=== PATIENT | female | born 1970 | race Caucasian/White ===

== ENCOUNTER → 2019-03-28 10:04 | Outpatient (POV) | payer BC, SELFPAY ==
[2019-03-28 10:23] VITALS: BP 148/93; PULSE 87; RESP 18; O2SAT 98; BMI 25.7
--- NOTE | 2019-03-30 12:46 | HMH.PMCON ---
Assessment and Plan (1) Sacroiliitis Current visit: Yes Status: Chronic Category: Medical Code(s): M46.1 - Sacroiliitis, not elsewhere classified - Assessment and plan all Dx Assessment and Plan for all problems:: Patient and I discussed SI joint belt along with prescription anti-inflammatory she would like to move forward trying this. We will call in diclofenac 75 mg 1 p.o. twice daily for the patient. We will follow-up with her in 1 month reassess her symptoms at that time I do believe she may benefit from injective therapy in the future. However we will see how she does after these anti-inflammatories. Dr. Damon has reviewed this note and agrees with this plan of care. she has been instructed to call the office if she has any issues prior to her next appointment. This note was dictated using voice recognition software and may contain errors or omissions HPI - Data of Consult Consult date: 03/28/19 Requesting Physician: Ursula Schmitt APRN Primary Care Provider: Saul Smith - Consult Narrative Reason for consult: Low back pain History of present illness: Ms. Rivera is a 48 year old female who presents today for consultation in regards to her low back pain. Patient has had pain on and off since childbirth many years ago. However at this time it is any more frequently there. She has pain in her low back that does not radiate. Patient has a positive Diamante sign Miguel sign and SI joint compression sign. Patient rates her pain a 2 out of 10 today. She has been given Lortab sporadically throughout the years to take during her flareups. However she states that ibuprofen is very beneficial as well. She has not been on any prescription anti-inflammatories. CC: Ursula Schmitt APRN [facility] History I have reviewed the patient's past medical history: Yes *Have you ever received a pneumonia vaccine?: Yes *Have you received a flu vaccine this season?: Yes Other Surgeries: Yes: Cholecystectomy, Hysterectomy-Total Amputation: No Fractures: No - *Social History Smoking Status: Never smoker Alcohol Intake: never *Occupational Status:: other Housing: house Household Members: other *Travel in the last 8 weeks: None Family Hx:: Unable to obtain Review of Systems - Review of Systems ROS General: no recent weight change, no fever, no sleep disturbances Respiratory: no cough, no shortness of air, no recurring pulmonary infections Cardiovascular/Peripheral Vascular: No chest pain, No palpitations, no edema, no shortness of breath. Gastrointestinal: no new onset incontinence, normal bowel movements reported Genitourinary: no new onset incontinence Musculoskeletal: Bilateral SI joint pain Psychiatric: normal mood/ affect Neurological: [denies new onset weakness in extremities], [denies new onset balance issues] Meds Home Medications Medication Instructions Recorded Confirmed Type Diclofenac Sodium [Diclofenac 75mg 75 mg PO BID #60 tab 03/28/19 Rx Tab] Allergies Allergy/AdvReac Type Severity Reaction Status Date / Time Amoxicillin Allergy Unknown Uncoded 03/24/17 15:07 Clavulanic Acid Allergy Unknown Uncoded 03/24/17 15:07 Penicillin Allergy Unknown Uncoded 03/24/17 15:07 Objective Vital signs: Pulse Resp BP Pulse Ox 87 18 148/93 H 98 03/28/19 10:23 03/28/19 10:23 03/28/19 10:23 03/28/19 10:23 Narrative: Physical Exam General: Alert and oriented x3, no acute distress, pleasant and cooperative, [on room air] Lungs: Resps E/U, Symmetrical chest expansion, Eyes: PERRL Musculoskeletal: Flexion and extension of lumbar spine somewhat guarded secondary to pain, deep tendon reflexes normal, strength in upper and lower extremities [5/5], normal gait noted positive Diamante sign Miguel sign and SI joint compression test bilaterally Neurological: speech clear, scrub technician equal, no gross sensory deficits Opioid Risk Tool - Opioid Risk Tool-Fe
== END ==
PROVIDERS: PCP Family Medicine; Visit Provider Clinical Nurse Specialist Family Health
DX: M46.1 Sacroiliitis, not elsewhere classified (principal)
CPT/HCPCS: 99202

== ENCOUNTER → 2020-11-15 14:37 | Outpatient (POV) | payer BC, SELFPAY ==
[2020-11-15 14:51] VITALS: BP 129/86; PULSE 86; RESP 18; TEMP 37.2; O2SAT 97; BMI 23.3
--- NOTE | 2020-11-15 15:41 | HMH.PMCON ---
Assessment and Plan (1) Degenerative joint disease (DJD) of lumbar spine Status: Chronic Category: Medical Code(s): M47.816 - Spondylosis without myelopathy or radiculopathy, lumbar region (2) Bilateral sacroiliitis Status: Chronic Category: Medical Code(s): M46.1 - Sacroiliitis, not elsewhere classified - Assessment and plan all Dx Assessment and Plan for all problems:: Patient I discussed her symptoms today. She does have a positive Silvestre's, compression, distraction test with tenderness to bilateral SI joints. I did discuss with the patient she would likely need to undergo bilateral SI joint injections. She does have an MRI that reports annular bulge at L4-L5. She is having paresthesia into her left lower extremity with bilateral low back pain, bilateral buttock pain and bilateral hip pain. Patient did request oral medications, and was previously prescribed [place] 7.5 mg every 4 hours as needed. She also takes tizanidine every 8 hours as needed muscle spasms. I have expressed to the patient our policy and will not be able to provide opiates to the patient for her pain, that would be happy to offer injective and interventional therapies. Patient has deferred with me at this time. She would Dr. Damon to examine her records and make recommendations. I have advised her that Dr. Damon can review the note performed by myself today, as well as her MRI and referral note. She has asked to be contacted tomorrow on 11/16/2020 for 2 PM at the phone #[phone] regarding a further plan of care. Patient has been instructed to contact the clinic with any concerns before the next appointment. Dr. Damon has reviewed this note and agrees with this plan of care. This note was dictated using voice recognition software and make contain errors or omissions. HPI - Data of Consult Patient: new to practice Consult date: 11/15/20 Requesting Physician: Lissa Perez APRN Primary Care Provider: Saul Smith - Consult Narrative Reason for consult: Low back pain History of present illness: Ms. Rivera is a 50 year old female presents today for consultation for chronic patient says that she has pain in her bilateral low back area with radiation into bilateral lower extremities, worse to left leg. Patient says that she began to develop severe low back pain in her early 40s. The pain has progressively worsened. She says that she began to develop leg numbness and tingling into the left leg approximately 2 to 3 months ago which is progressively worsening as well. She is now having episodes of her legs giving out . Patient says that her pain is worse with sitting and after driving. She says that she is unable to sit upright with correct posture due to pain. She does have a MRI of her lumbar spine that reports annular bulge at L4-L5, without significant spinal stenosis, narrowing, or fractures. Patient is tender to palpation to bilateral SI joints today. She also has tenderness to her bilateral hips and groin. She denies any bowel or bladder changes. She denies saddle anesthesia. Patient's pain is an 8 out of 10. Patient has been referred to us by Dr. Saul Smith. She was previously taking [place] 7.5 mg. She was getting up to 18 tablets per prescription. She says that her primary care provider prescribed more than 18 pills at a time. She is here today for possible medication management. Patient has been advised that we are not able to prescribe oral medications, however, can perform injective therapy. Patient has requested that Dr. Damon review her records before proceeding with any further treatment. She does feel that Dr. Damon may feel she is appropriate for oral medications. CC: Lissa Perez APRN [facility] History I have reviewed the patient's past medical history: Yes *Have you ever received a pneumonia vaccine?: No *Have you received a flu vaccine this season?: No Other Surgeries: Yes: Cholecystectomy, Hysterectomy-Total Amputation: No Fractures: No - *Social Hi
== END ==
PROVIDERS: PCP Family Medicine; Visit Provider Clinical Nurse Specialist Family Health
DX: M47.816 Spondylosis without myelopathy or radiculopathy, lumbar region (principal); M46.1 Sacroiliitis, not elsewhere classified
CPT/HCPCS: 99202; G0463

== ENCOUNTER → 2022-10-15 12:45 | Outpatient (POV) | payer BC, SELFPAY ==
[2022-10-15 12:55] VITALS: BP 109/76; PULSE 84; RESP 18; O2SAT 97; BMI 23.1
--- NOTE | 2022-10-15 13:38 | EXP.PAIN.OV ---
HPI Data of Consult Patient: new to practice Consult date: 10/15/22 Requesting Physician: Ema Jean Baptiste APRN Consult Narrative Reason for consult: Low back pain, left leg pain History of present illness: Ms. Rivera is a 52 year old female who presents today as a new patient. She is a referral from Dr. Robertson office. Today she rates her pain an 8 out of 10. Patient states her pain is all in her low back with radiating symptoms into her left lower extremity. Patient states this has been going on for approximately 3 years or more and progressively worsened over time. Patient denies any specific trauma or injury that initially led to her symptoms. Patient does describe it as a constant throbbing sensation with numbness and tingling into her hips that is worse with increased activity. She does state the pain makes it difficult performing activities of daily living such as cooking and cleaning. She states her pain is aggravated by prolonged sitting, standing or walking. She does state that she has recently had imaging done at [facility]. Patient is currently managed with tizanidine 4 mg 3 times daily as needed along with previous [place] 7.5 mg 4 times a day tablets. She stated previously she had even tried Tylenol 3 however it made no additional improvement. Patient states she tried [id number] medications along with Tylenol and ibuprofen and heat and ice and multiple topicals such as IcyHot and Biofreeze with no additional improvement. She states that she did previously go to Dr. Ramon's office however he was wanting to do an epidural and she was not interested in this injection. Patient denies any previous surgery or injective history patient has had physical therapy as well as chiropractor treatments with no additional change. She does state that she has a aortic insufficiency that she goes to see Liz guerrero every 2 years for and that it is stable. Her Rajiv is [phone]. Its been reviewed and appropriate. CC: Ema Jean Baptiste APRN [facility] Disclaimer: The information contained in this section may have been updated after the patient was seen, as this information can be updated by other users. Medical History (Updated 10/15/22 @ 13:45 by Ema Jean Baptiste APRN) Anxiety Chronic pain Gall bladder disease Surgical History (Updated 10/15/22 @ 13:31 by Marleen Mancuso RN) H/O breast augmentation H/O: hysterectomy History of dental surgery Hx of cholecystectomy Hx of tonsillectomy Social History (Updated 10/15/22 @ 13:34 by Marleen Mancuso RN) Smoking Status: Never smoker alcohol intake: never current occupational status: employed Travel in the last 8 weeks: None household members: other housing: house Review of Systems Review of Systems Review of systems:: pertinent systems reviewed and negative unless documented below Review of systems (narrative): Review of Systems: General: No recent weight changes, no fever, no sleep disturbances Respiratory: No cough, no shortness of air, no recurring pulmonary infections Cardiovascular/peripheral vascular: No chest pain, no palpitations, no edema, no shortness of breath Gastrointestinal: No new onset incontinence, normal bowel movements reported Genitourinary: No new onset incontinence Musculoskeletal: Low back pain, left leg pain Psychiatric: [Normal mood/affect] Neurological: [Denies weakness in extremities], [denies balance issues] Meds Home Medications and Allergies Home Medications Medication Instructions Recorded Confirmed Type clonazepam 1 mg tablet 1 mg PO TID NERVES 10/15/22 10/15/22 History hydroxyzine HCl 25 mg tablet 25 mg PO DAILYP PRN NERVES 10/15/22 10/15/22 History tizanidine 4 mg tablet 4 mg PO BID NERVES 10/15/22 10/15/22 History trazodone 100 mg tablet 200 mg PO DAILY SLEEP 10/15/22 10/15/22 History New Prescriptions to Start Prescriptions: Allergies Allergy/AdvReac Type Severity Reaction Status Date / Time
== END | disposition home or self-care (01) ==
PROVIDERS: Visit Provider Nurse Practitioner Family
DX: M46.1 Sacroiliitis, not elsewhere classified (principal); M54.42 Lumbago with sciatica, left side; M54.41 Lumbago with sciatica, right side; G89.29 Other chronic pain; M54.16 Radiculopathy, lumbar region
CPT/HCPCS: 99202; G0463

== ENCOUNTER → 2023-05-08 10:20 | Outpatient (POV) | payer BC, SELFPAY ==
[2023-05-08 10:32] VITALS: BP 123/86; PULSE 102; RESP 18; O2SAT 97; BMI 23.3
--- NOTE | 2023-05-08 11:33 | A.OFFVIS_ITS ---
[facility] Pain Management SOAP Note Subjective:: This patient is a very pleasant 52-year-old female comes to clinic today to review lumbar MRI results. Patient reports low back pain she describes as constant, dull, aching. Patient also reports left hip and leg radicular symptoms below the knee. Her lumbar MRI shows mild bulge at L4-5 with some mild compromise of the left neural foramen. Patient rates her pain 6/10. We discussed treatment options with the patient. I recommend lumbar epidural steroid injection at the L4-5 level. Patient requesting narcotic pain medication. I informed the patient we would not be writing narcotic pain medication for her for this specific condition. Offered muscle relaxants as well as prescription strength NSAIDs. Patient reports she is taking ibuprofen 800 mg 1 p.o. twice daily. Patient states the NSAIDs do not help with pain. Objective:: Patient is awake alert [place] x 3. No acute distress. Flexion-extension lumbar spine normal. Deep tendon reflexes upper lower extremities normal. Motor strength upper lower extremities normal. There is no gross sensory deficit. Gait is normal. Assessment:: Degenerative disc lumbar spine multilevels. Disc bulge L4-5. Left leg radiculopathy. Plan:: Discussed in detail with the patient regarding lumbar epidural steroid injection at the L4-5 level. Answered her questions. She wishes to proceed. [facility] Disclaimer: The information contained in this section may have been updated after the pat ient was seen, as this information can be updated by other users. Medical History (Updated 10/15/22 @ 13:45 by Ema Jean Baptiste APRN) Anxiety Chronic pain Gall bladder disease Surgical History (Updated 10/15/22 @ 13:31 by Marleen Mancuso RN) H/O breast augmentation H/O: hysterectomy History of dental surgery Hx of cholecystectomy Hx of tonsillectomy Social History (Updated 10/15/22 @ 13:34 by Marleen Mancuso RN) Smoking Status: Never smoker alcohol intake: never substance use type: denies use current occupational status: employed Travel in the last 8 weeks: None household members: other housing: house
== END ==
LOC: SC.PAIN 10:20
PROVIDERS: PCP Family Medicine; Visit Provider Nurse Anesthetist, Certified Registered
DX: M51.36 Other intervertebral disc degeneration, lumbar region (principal); M51.26 Other intervertebral disc displacement, lumbar region
CPT/HCPCS: 99212; G0463

== ENCOUNTER → 2023-05-19 13:37 | Outpatient (POV) | payer BC, SELFPAY ==
[2023-05-19 13:40] VITALS: BP 151/101; PULSE 87; RESP 16; TEMP 36.6; O2SAT 98; BMI 24.1
--- NOTE | 2023-05-26 10:54 | EXP.PAIN.SOA ---
[facility] Pain Management SOAP Note Subjective:: Patient is a pleasant 52-year-old female comes our clinic today following insurance denial regarding lumbar epidural steroid injection. Patient describes low back pain as constant, dull, aching. She also reports right hip and leg radicular symptoms. Patient has been to physical therapy within the last year. Physical therapy was discontinued due to pain increasing in the low back area. Patient has continued with home exercise program. She has failed conservative measures such as acetaminophen, prescription strength NSAIDs, gabapentin. Given the lumbar pathology my recommendation is lumbar epidural steroid injection at the L4-5 level. Patient requesting narcotic pain medication 4-5 times during her visit. She is requesting hydrocodone 5 mg 3 times a day. I informed the patient we do not write narcotics for this kind of pain. Patient seems very annoyed regarding not receiving narcotics. Patient is requesting narcotics from me in previous visits for the same pain which I have denied. Objective:: Patient is awake alert [place] x 3. No acute distress. Flexion-extension lumbar spine somewhat guarded secondary to pain. Deep tendon reflexes upper and lower extremities normal. Motor strength upper and lower extremities normal. There is no gross sensory deficit. Gait is normal. Assessment:: Degenerative disc lumbar spine multilevels. Lumbar radiculopathy. Plan:: I recommend we resubmit for insurance approval regarding lumbar epidural steroid injection at the L4-5 level. [facility] Disclaimer: The information contained in this section may have been updated after the patient was seen, as this information can be updated by other users. Medical History Anxiety Chronic pain Gall bladder disease Surgical History H/O breast augmentation H/O: hysterectomy History of dental surgery Hx of cholecystectomy Hx of tonsillectomy Social History Smoking Status: Never smoker alcohol intake: never substance use type: denies use current occupational status: disabled Travel in the last 8 weeks: None household members: other housing: house
== END ==
LOC: SC.PAIN 13:38
PROVIDERS: PCP Family Medicine; Visit Provider Nurse Anesthetist, Certified Registered
DX: M51.16 Intervertebral disc disorders with radiculopathy, lumbar region (principal)
CPT/HCPCS: 99212; G0463

== ENCOUNTER 2023-07-06 15:06 | Outpatient (POV) | payer BC, SELFPAY ==
[2023-07-06 15:14] VITALS: BP 143/97; PULSE 96; RESP 18; O2SAT 98; BMI 24.1
--- NOTE | 2023-07-06 15:32 | EXP.PAIN.SOA ---
[facility] Pain Management SOAP Note Subjective:: Patient is a pleasant 52-year-old female who presents today for her second insurance denial regarding lumbar epidural. Patient rates her pain today an 8 out of 10. Patient states that she has not had any additional injury or trauma from our last visit. She does state that she continues to have chronic pain in her low back that radiates down her entire left extremity. Patient does describe this as an aching, constant sensation with numbness and tingling into her extremity. Patient has tried and failed conservative therapy such as oral medication of Tylenol and ibuprofen along with gabapentin and [place] in the past. Patient has also tried heat and ice and topicals with minimal relief. Patient was in physical therapy however was discontinued due to worsening pain. Patient does state that the only thing that seemed to really help her overall pain was the Lortab. Patient states that she was prescribed stronger medication in the past of Percocet and that she could not tolerate it due to weight gain. Patient does have a history of aortic valve leakage and is monitored regularly by her lard maker. Patient states this is stable and denies any blood thinners. Patient is interested in any help we may be able to provide as the pain is interfering with her ability to perform activities of daily living such as cooking and cleaning. Patient has been prescribed tizanidine 4 mg twice daily, meloxicam 7.5 mg daily and Flector patches in the past. Her Rajiv has been reviewed and is appropriate. Review of Systems: General: No recent weight changes, no fever, no sleep disturbances Respiratory: No cough, no shortness of air, no recurring pulmonary infections Cardiovascular/peripheral vascular: No chest pain, no palpitations, no edema, no shortness of breath Gastrointestinal: No new onset incontinence, normal bowel movements reported Genitourinary: No new onset incontinence Musculoskeletal: Low back pain, left leg pain Psychiatric: [Normal mood/affect] Neurological: [Denies weakness in extremities], [denies balance issues] Objective:: Physical Exam: General: Alert and oriented x3, no acute distress, pleasant and cooperative Lungs: Respirations even and unlabored, symmetrical chest expansion Eyes: PERRL Musculoskeletal: Flexion and extension of lumbar [spine] somewhat guarded secondary to pain, [antalgic gait noted] positive left leg raise Neurological: Speech clear, no gross sensory deficit [facility] 02/16/2023 MRI lumbar spine without contrast Findings: Multiplanar MR imaging of the lumbar spine was performed without contrast. On the sagittal T2 weighted images there is abnormal decreased signal involving only the L4-L5 disc. The vertebrae are of normal height. Vertebral alignment is normal. L1-2: No significant canal stenosis or neuroforaminal narrowing. L2-3: No significant canal stenosis or narrowing. L3-4: No significant canal stenosis or neuroforaminal narrowing. L4-5: Mild annular bulge is present with mild compromise of the left neural foramen. L5-S1: There is no significant canal stenosis or neuroforaminal narrowing. Assessment:: Degenerative disc disease of lumbar spine with lumbar radiculopathy symptoms, chronic pain syndrome Plan:: Patient continues to experience significant pain in her low back with radiating symptoms down into her left leg. Patient has had MRI imaging of February 2023 that did show annular bulge with mild compromise of the left neural foramen. I have discussed with the patient that I do believe that she would still benefit from a lumbar epidural steroid injection. Risk and benefits were discussed with the patient and she would like to proceed forward with this plan of care. Patient is not on any blood thinners. Patient has tried and failed conservative therapies including physical therapy however this had to be stopped due to worsening pain symptoms.. We will resubmit for the lumbar epidural steroid injection L4-L5 under fluoroscopy. I will have reviewed over the patient's current medication and I will send in refills of her Flector patches, meloxicam 7.5 mg daily and tizanidine 4 mg twice daily. I have discussed with Dr. Damon regarding the addition of Lortab and at this time we will not prescribe this medication. We will send in a new prescription of duloxetine 30 mg twice daily to possibly help with additional nerve pain. We will contact the patient once we have approval for the lumbar epidural steroid injection with specific time and date. Patient has been instructed to contact the clinic with any concerns before the next appointment. Dr. Damon has reviewed this note and agrees with this plan of care. This note was dictated using voice recognition software and make contain errors or omissions. [facility] Disclaimer: The information contained in this section may have been updated after the patient was seen, as this information can be updated by other users. Medical History Chronic pain Gall bladder disease Anxiety Surgical History H/O: hysterectomy Hx of cholecystectomy History of dental surgery H/O breast augmentation Hx of tonsillectomy Social History Smoking Status: Never smoker alcohol intake: never substance use type: denies use current occupational status: other Travel in the last 8 weeks: None household members: other housing: house
== END 2023-07-06 23:59 | disposition home or self-care (01) ==
PROVIDERS: PCP Family Medicine; Visit Provider Nurse Practitioner Family
DX: M51.16 Intervertebral disc disorders with radiculopathy, lumbar region (principal); G89.4 Chronic pain syndrome
CPT/HCPCS: 99212; G0463

== ENCOUNTER 2023-09-21 19:16 | Emergency (ER) | payer BC, SELFPAY ==
[2023-09-21 19:18] VITALS: BP 164/106; PULSE 82; RESP 20; TEMP 37; O2SAT 96; BMI 24.1
--- NOTE | 2023-09-21 19:21 | HMH.EDGENADL ---
Discharge Plan Prescriptions Prescriptions: No Action clonazepam 1 mg tablet 1 mg PO TID Patient Comments: TAKE 1 TABLET BY MOUTH THREE TIMES DAILY NEEDED FOR ANXIETY trazodone 100 mg tablet 200 mg PO DAILY Patient Comments: TAKE 2 TABLETS BY MOUTH ONCE DAILY AT NIGHT AT BEDTIME hydroxyzine HCl 25 mg tablet 25 mg PO DAILYP PRN (Reason: NERVES) Patient Comments: TAKE 1 TO 2 TABLETS BY MOUTH AT BEDTIME NEEDED FOR ANXIETY AND FOR SLEEP duloxetine 30 mg capsule,delayed release(DR/EC) 30 mg PO BID Qty: 28 0RF tizanidine 4 mg tablet 4 mg PO BID PRN (Reason: NERVES) Qty: 60 0RF meloxicam 7.5 mg tablet 7.5 mg PO DAILY Qty: 30 0RF diclofenac epolamine [Flector] 1.3 % patch 12 hour 1 patch topical Q12H Qty: 30 0RF Referrals Follow up/Referrals: Saul Smith MD [Primary Care Provider] - See instructions Discharge ED Provider: Kimo Bonilla General Adult [facility] General Stated complaint: Allergic reaction Tongue,lips,throat tingling Time Seen by Provider: 09/21/23 19:21 Related Data Home Medications Medication Instructions Recorded Confirmed clonazepam 1 mg tablet 1 mg PO TID NERVES 10/15/22 05/19/23 hydroxyzine HCl 25 mg tablet 25 mg PO DAILYP PRN NERVES 10/15/22 05/19/23 trazodone 100 mg tablet 200 mg PO DAILY SLEEP 10/15/22 05/19/23 Previous Rx's Medication Instructions Recorded diclofenac epolamine 1.3 % 1 patch topical Q12H #30 ea 07/06/23 transdermal 12 hour patch (Flector) duloxetine 30 mg capsule,delayed 30 mg PO BID #28 caps 07/06/23 release meloxicam 7.5 mg tablet 7.5 mg PO DAILY #30 tabs 07/06/23 tizanidine 4 mg tablet 4 mg PO BID PRN NERVES #60 tabs 07/06/23 Allergies Allergy/AdvReac Type Severity Reaction Status Date / Time Amoxicillin Allergy Unknown Uncoded 03/24/17 15:07 Clavulanic Acid Allergy Unknown Uncoded 03/24/17 15:07 Penicillin Allergy Unknown Uncoded 03/24/17 15:07 [facility] Disclaimer: The information contained in this section may have been updated after the patient was seen, as this information can be updated by other users. Medical History Chronic pain Gall bladder disease Anxiety Surgical History H/O: hysterectomy Hx of cholecystectomy History of dental surgery H/O breast augmentation Hx of tonsillectomy Social History Smoking Status: Never smoker alcohol intake: never substance use type: denies use current occupational status: other Travel in the last 8 weeks: None household members: other housing: house ROS Obtained: Yes Systems reviewed as appropriate & no additional complaints except as documented Physical Exam General General appearance: alert and in no apparent distress Head Head exam: atraumatic and normal inspection Eye Eye exam: Present normal appearance, PERRL and EOMI ENT ENT exam: Present normal exam, normal oropharynx and mucous membranes moist Neck Neck exam: Present normal inspection, full ROM and trachea midline; Absent lymphadenopathy Chest Chest inspection: Present normal inspection and symmetric chest wall rise Respiratory Respiratory exam: Present normal lung sounds bilaterally; Absent accessory muscle use Cardiovascular Cardiovascular exam: Present regular rate, normal rhythm, normal heart sounds, +S1 and +S2 Abdominal Exam Abdominal exam: Present soft and normal bowel sounds; Absent tenderness, guarding or rebound Extremities Exam Extremities exam: Present normal inspection and full ROM Neurological Exam Neurological exam: Present alert, oriented X3 and CN II-XII intact Psychiatric Psychiatric exam: Present normal affect and normal mood Skin Skin exam: Present warm, dry and normal color Lymphatic Lymphatic Findings: no adenopathy Medical Decision Making Medical Decision Narrative: In summary patient is a [age, sex] who presents to the emergency department for evaluation of [complaint]. Patient is [hemodynamically stable/unstable] upon arrival, [febrile/afebrile]. [Unremarkable physical exam, nonfocal exam versus focal remarkable exam]. Differential diagnosis includes [DDx]. Initial workup will be conducted with [hematologic labs, imaging, respiratory swab, describe workup]. Initial interventions include [crystalloid bolus, medications, p.o. challenge, etc.] initial workup reviewed by me [hematologic labs are remarkable for... Imaging remarkable for... Urinalysis remarkable for]. Upon repeat evaluation [patient had acceptable resolution of symptoms, had persistent pain for which additional interventions were conducted (describe interventions), tolerated p.o., was ambulatory, etc.]. Given this [patient is appropriate for discharge at this time and will be discharged with a prescription for... The case was discussed with hospital medicine regarding management and they will admit the patient their service for continued evaluation at this time... Etc.] Places where you can increase complexity: I informally interpreted the patient's chest x-ray or CT read and is remarkable for... Documenting what the rolling mill operator helper shows with rate and rhythm Consideration of test but deferring. Ex: I considered chest x-ray on this patient however given that they have no oxygen requirement and are clear to auscultation all lung paiz will be deferred. Social determinants of health: Given that patient is undomiciled increases complexity. Given that patient has polysubstance abuse compounds all aspects of care
[2023-09-21] MEDS: LACTATED RINGERS 1000ML 1,000 ML 999 ML IV (19:43)
[2023-09-21] MEDS: ONDANSETRON 4MG/2ML VIAL 4 MG IV (19:44)
[2023-09-21] MEDS: diphenhydrAMINE 50MG/ML VIAL 25 MG IV (19:50)
[2023-09-21] MEDS: DEXAMETHASONE 4MG/ML 1ML VIAL 10 MG IV (19:53)
--- NOTE | 2023-09-21 19:55 | HMH.EDGENADL ---
Discharge Plan Disposition Patient Disposition: Home, Self-Care Prescriptions Prescriptions: New epinephrine 0.3 mg/0.3 mL auto-injector 0.3 mg IM Q10M PRN (Reason: anaphylaxis) Qty: 2 0RF Rx Instructions: for 2 doses No Action clonazepam 1 mg tablet 1 mg PO TID Patient Comments: TAKE 1 TABLET BY MOUTH THREE TIMES DAILY NEEDED FOR ANXIETY trazodone 100 mg tablet 200 mg PO DAILY Patient Comments: TAKE 2 TABLETS BY MOUTH ONCE DAILY AT NIGHT AT BEDTIME hydroxyzine HCl 25 mg tablet 25 mg PO DAILYP PRN (Reason: NERVES) Patient Comments: TAKE 1 TO 2 TABLETS BY MOUTH AT BEDTIME NEEDED FOR ANXIETY AND FOR SLEEP duloxetine 30 mg capsule,delayed release(DR/EC) 30 mg PO BID Qty: 28 0RF tizanidine 4 mg tablet 4 mg PO BID PRN (Reason: NERVES) Qty: 60 0RF meloxicam 7.5 mg tablet 7.5 mg PO DAILY Qty: 30 0RF diclofenac epolamine [Flector] 1.3 % patch 12 hour 1 patch topical Q12H Qty: 30 0RF Referrals Follow up/Referrals: Saul Smith MD [Primary Care Provider] - See instructions Nick Damon MD [Staff Physician] - See instructions Activity Restrictions/Add. Instructions Additional Instructions/Restrictions: Call your family doctor to establish care for this visit to the emergency department and schedule follow-up within 48 hours to ensure improvement. If you have any worsening of your condition or any other concerning signs or symptoms, return to the emergency department or your primary care doctor for further evaluation. EpiPen sent to the pharmacy, if you need to use 1 of these, come immediately to the emergency department afterward even if symptoms get better. For the next 24 hours, 25 to 50 mg of Benadryl every 6-8 hours for symptoms. Clinical Impressions Clinical Impression: Facial tingling, Allergic reaction caused by a drug, Elbow pain, right Discharge ED Provider: Kimo Bonilla General Adult HPI General Chief complaint: Allergic Reaction Stated complaint: Allergic reaction Tongue,lips,throat tingling Time Seen by Provider: 09/21/23 19:21 Mode of Arrival: Ambulatory Source of Information: Patient Limitations: No Limitations Description of Symptoms (Recalled from ER Triage Doc. by RN): c/o right elbow injury was seen at [place] ED and recieved Toradol . Pt. states that she is allergic to Toradol. C/o mouth, tongue and throat tingling. states she had 3 episodes of vomiting. History of Present Illness HPI narrative: Please note that above description of symptoms, in this electronic medical record under categorization of recalled from ER triage doctor by RN are reflective of an initial nursing assessment, however, is not reflective of my full history and physical exam that was personally taken and clarified. Consequentially, this preceding description of symptoms, which may include the patient's categorized chief complaint in the EMR, do not reflect my personal clinical impression, and the ultimate description of history of present illness and patient stated complaints should be deferred to this section of the note. Unless stated otherwise or congruent with this section of the note, additional signs, symptoms, or incongruence should be interpreted as inaccurate with my clinical impression. Related Data Home Medications Medication Instructions Recorded Confirmed clonazepam 1 mg tablet 1 mg PO TID NERVES 10/15/22 05/19/23 hydroxyzine HCl 25 mg tablet 25 mg PO DAILYP PRN NERVES 10/15/22 05/19/23 trazodone 100 mg tablet 200 mg PO DAILY SLEEP 10/15/22 05/19/23 Previous Rx's Medication Instructions Recorded diclofenac epolamine 1.3 % 1 patch topical Q12H #30 ea 07/06/23 transdermal 12 hour patch (Flector) duloxetine 30 mg capsule,delayed 30 mg PO BID #28 caps 07/06/23 release meloxicam 7.5 mg tablet 7.5 mg PO DAILY #30 tabs 07/06/23 tizanidine 4 mg tablet 4 mg PO BID PRN NERVES #60 tabs 07/06/23 epinephrine 0.3 mg/0.3 mL 0.3 mg (0.3 mL) IM Q10M PRN 09/21/23 injection, auto-injector anaphylaxis #2 ea Allergies Allergy/AdvReac Type Severity Reaction Status Date / Time ketorolac [From Toradol] Allergy Anaphylaxis Verified 09/21/23 19:29 Amoxicillin Allergy Unknown Uncoded 03/24/17 15:07 Clavulanic Acid Allergy Unknown Uncoded 03/24/17 15:07 Penicillin Allergy Unknown Uncoded 03/24/17 15:07 [facility] Disclaimer: The information contained in this section may have been updated after the patient was seen, as this information can be updated by other users. Medical History (Updated 09/21/23 @ 20:23 by Kimo Bonilla MD) Chronic pain Gall bladder disease Anxiety Surgical History H/O: hysterectomy Hx of cholecystectomy History of dental surgery H/O breast augmentation Hx of tonsillectomy Social History Smoking Status: Never smoker alcohol intake: never substance use type: denies use current occupational status: other Travel in the last 8 weeks: None household members: other housing: house ROS Obtained: Yes All systems reviewed & no additional complaints except as documented Physical Exam General General appearance: alert and in no apparent distress Head Head exam: atraumatic and normocephalic Eye Eye exam: Present normal appearance, PERRL and EOMI ENT ENT exam: Present mucous membranes moist and other (No evidence of stridor, angioedema, or other abnormality) Neck Neck exam: Present normal inspection, full ROM and trachea midline Respiratory Respiratory exam: Present normal lung sounds bilaterally; Absent respiratory distress, wheezes, stridor, accessory muscle use or prolonged expiratory phase Cardiovascular Cardiovascular exam: Present regular rate, normal rhythm and other (Moderately hyper tensive) Abdominal Exam Abdominal exam: Present soft; Absent distention, tenderness, guarding, rebound or rigidity Extremities Exam Extremities exam: Absent edema Neurological Exam Neurological exam: Present alert, oriented X3, CN II-XII intact and normal gait; Absent motor sensory deficit Skin Skin exam: Present warm and dry; Absent diaphoresis or erythema Medical Decision Making Medical Records Medical records reviewed: Yes I reviewed the patient's medical records. Rajiv Inquiry Pt receiving controlled substance: No Rajiv was queried for this patient: No Vital Signs: 09/21/23 19:18 Temperature 98.6 F Temperature Source Oral Pulse Rate [Right Radial] 82 Respiratory Rate 20 Blood Pressure [Right Arm] 164/106 H Blood Pressure Mean [Right Arm] 125 Blood Pressure Source [Right Arm] Automatic Cuff Blood Pressure Position [Right Arm] Sitting 02 Sat by Pulse Oximetry 96 Oxygen Delivery Method Room Air Orders (Tests/Meds): ED MEDICATIONS Generic Name Dose Route Start Last Admin Trade Name Freq PRN Reason Stop Dose Admin Lactated Ringer's 1,000 mls @ 999 mls/hr 09/21/23 19:28 09/21/23 19:43 Lactated Ringer's 1000 Ml Bag IV 09/21/23 20:28 999 mls/hr .Q1H1M ONE Administration Discontinued Medications Generic Name Dose Route Start Last Admin Trade Name Rose PRN Reason Stop Dose Admin Dexamethasone Sodium Phosphate 10 mg 09/21/23 19:28 09/21/23 19:53 Dexamethasone 4mg/Ml 1ml Vial IV 09/21/23 19:29 10 mg ONCE ONE Administration Diphenhydramine HCl 25 mg 09/21/23 19:28 09/21/23 19:50 Diphenhydramine 50mg/Ml Vial IV 09/21/23 19:29 25 mg ONCE ONE Administration Ondansetron HCl 4 mg 09/21/23 19:28 09/21/23 19:44 Ondansetron 4mg/2ml Vial IV 09/21/23 19:29 4 mg ONCE ONE Administration Medical Decision Narrative: 53-year-old female history of anaphylaxis to Toradol presenting with allergic symptoms after Toradol administration. Patient states that she was seen for minor right elbow injury at outside ED. Outside ED gave Toradol IM injection and patient states that she started having tingling in her throat, mouth, tongue, as well as 1 episode of nonbloody, nonbilious vomiting. Happened just before arrival. Patient came to this ED for further evaluation. Took a Benadryl around 4 PM due to allergic symptoms. Denies rash, palpitations, shortness of breath, cough, diarrhea, current GI upset, or other symptoms. History was obtained via conversation with patient. On arrival, patient hemodynamically stable, alert, oriented x4, appropriate, GCS 15, moving all extremities spontaneously, pupils equal and reactive to light. Full physical exam performed and significant for frustrated, but very well-appearing 53-year-old female. No rash. Nontachycardic, hypertensive. Saturating 100% on room air. Lungs are clear to auscultation without wheezes, patient not coughing. Abdomen is soft, nontender, nondistended and patient not exhibiting signs of wheezing, GI upset, etc. Differential includes minor allergic reaction, delayed anaphylaxis, local medication reaction, among others. Patient was given Benadryl, Solu-Medrol, fluids for symptomatic management and correction of underlying abnormalities. Patient was placed in observation beginning at 7:20 PM in order to fluids, Benadryl, steroid and determine need for admission versus home-going. The patient was provided serial exams, meds while awaiting results. On reevaluation, patient still without signs of decompensation. Moderately hypertensive, nontachycardic, saturating appropriately on room air, lungs are clear, no evidence of rash, no evidence of stridor or angioedema, no vomiting or diarrhea. Conversation was had with patient regarding right elbow. She keeps mentioning that she wants Lortab, I discussed that we do not treat minor injuries with opiate medication. I told her we can chey-ray her elbow and make sure it is not broken, although it was a minor injury after bumping it on a door frame. Patient states she does not think it is broken and is declining right elbow x-ray at this time. Also stating that she wants opiate medication for her lower back pain. I told her we do not treat chronic pain with opiate medications here in the emergency department. Patient seems dissatisfied with this. She seems to be exhibiting drug-seeking behavior. Recommendations for Dr. Damon and outpatient pain clinic were made, she states she can follow-up with him outpatient. At this time, I feel patient is appropriate for discharge. Total observation time 1 hour. Because patient at baseline without signs or symptoms of clinical decompensation, deemed appropriate for discharge. Results were relayed to patient who voiced understanding and were agreeable to outpatient management and follow up. I discussed my clinical impression with patient and answered all questions. At this time, the evidence for any other entities in the differential is insufficient to warrant any further testing or ED observation. This was explained as well. Advisory was given that persistent or worsening symptoms require further evaluation. I confirmed the understanding of this discussion. [employer] disclaimer Much of this encounter note is an electronic laborer syrup machine spoken language to printed text. Electronic laborer syrup machine of the spoken language may permit errors. Although I have reviewed the note, some errors may still exist. Critical Care Critical Care Time Critical Care Time: No
--- NOTE | 2023-09-21 20:28 | XR_ITS ---
PROCEDURE INFORMATION: Exam: XR Right Elbow Exam date and time: 09/21/2023 8:28 PM Age: 53 years old Clinical indication: Pain; Elbow; Right; Additional info: Lateral R elbow pain TECHNIQUE: Imaging protocol: Radiologic exam of the right elbow. Views: 3 or more views. COMPARISON: No relevant prior studies available. FINDINGS: Bones/joints: Normal. Soft tissues: Normal. IMPRESSION: No acute findings.
[2023-09-21 21:03] VITALS: BP 164/96; PULSE 76; RESP 20; TEMP 36.5; O2SAT 97
== END 2023-09-21 21:08 | disposition home or self-care (01) ==
PROVIDERS: Emergency Provider Emergency Medicine; PCP Family Medicine
DX: T39.395A Adverse effect of other nonsteroidal anti-inflammatory drugs [NSAID], initial encounter (principal); R20.2 Paresthesia of skin; R11.10 Vomiting, unspecified; M25.521 Pain in right elbow
CPT/HCPCS: 73080; 96361; 96374; 96375; 99284; J1100; J2405; J7120

== ENCOUNTER 2023-09-22 19:38 | Emergency (ER) | payer BC, SELFPAY ==
[2023-09-22 19:40] VITALS: BP 150/97; PULSE 89; RESP 18; TEMP 36.8; O2SAT 95; BMI 24.1
--- NOTE | 2023-09-22 19:48 | ED_ITS ---
<Statement entered by Skyla Fay MD - 09/22/23 22:48> I was consulted by the CALLIE, and we discussed the complexity of the problems being addressed. I approved the treatment and management plan for this patient's care in the emergency department, thus performing a substantive portion of the medical decision making. Skyla Fay MD, TANJA, FACEP Discharge Plan Disposition Patient Disposition: Home, Self-Care Condition: Good Prescriptions Prescriptions: New ondansetron 4 mg tablet,disintegrating 4 mg PO Q6H PRN (Reason: nausea and vomiting) Qty: 10 0RF No Action clonazepam 1 mg tablet 1 mg PO TID Patient Comments: TAKE 1 TABLET BY MOUTH THREE TIMES DAILY NEEDED FOR ANXIETY trazodone 100 mg tablet 200 mg PO DAILY Patient Comments: TAKE 2 TABLETS BY MOUTH ONCE DAILY AT NIGHT AT BEDTIME hydroxyzine HCl 25 mg tablet 25 mg PO DAILYP PRN (Reason: NERVES) Patient Comments: TAKE 1 TO 2 TABLETS BY MOUTH AT BEDTIME NEEDED FOR ANXIETY AND FOR SLEEP duloxetine 30 mg capsule,delayed release(DR/EC) 30 mg PO BID Qty: 28 0RF tizanidine 4 mg tablet 4 mg PO BID PRN (Reason: NERVES) Qty: 60 0RF meloxicam 7.5 mg tablet 7.5 mg PO DAILY Qty: 30 0RF diclofenac epolamine [Flector] 1.3 % patch 12 hour 1 patch topical Q12H Qty: 30 0RF epinephrine 0.3 mg/0.3 mL auto-injector 0.3 mg IM Q10M PRN (Reason: anaphylaxis) Qty: 2 0RF Rx Instructions: for 2 doses Referrals Follow up/Referrals: Saul Smith MD [Primary Care Provider] - See instructions Activity Restrictions/Add. Instructions Additional Instructions/Restrictions: Please take Zofran at the first sign of nausea to prevent vomiting. Please take Benadryl for any rash type symptoms. Please use your EpiPen for any anaphylactic symptoms. Clinical Impressions Clinical Impression: Vomiting Qualifiers: Vomiting type: unspecified Nausea presence: unspecified Qualified Code(s): R11.10 - Vomiting, unspecified Discharge ED Provider: Skyla Fay General Adult HPI General Chief complaint: Recheck/Abnormal Lab/Rx Stated complaint: vomiting, HBP, rash on legs Time Seen by Provider: 09/22/23 19:48 History of Present Illness HPI narrative: Patient presents for evaluation of vomiting a rash and high blood pressure. Patient was seen yesterday for a reported reaction to Toradol. Patient was ultimately discharged home with an EpiPen. Patient states that she began vomiting again today and has developed a rash on her right inner thigh today. Denies chest pain fever chills hemoptysis hematochezia melena hematemesis. Related Data Home Medications Medication Instructions Recorded Confirmed clonazepam 1 mg tablet 1 mg PO TID NERVES 10/15/22 05/19/23 hydroxyzine HCl 25 mg tablet 25 mg PO DAILYP PRN NERVES 10/15/22 05/19/23 trazodone 100 mg tablet 200 mg PO DAILY SLEEP 10/15/22 05/19/23 Previous Rx's Medication Instructions Recorded diclofenac epolamine 1.3 % 1 patch topical Q12H #30 ea 07/06/23 transdermal 12 hour patch (Flector) duloxetine 30 mg capsule,delayed 30 mg PO BID #28 caps 07/06/23 release meloxicam 7.5 mg tablet 7.5 mg PO DAILY #30 tabs 07/06/23 tizanidine 4 mg tablet 4 mg PO BID PRN NERVES #60 tabs 07/06/23 epinephrine 0.3 mg/0.3 mL 0.3 mg (0.3 mL) IM Q10M PRN 09/21/23 injection, auto-injector anaphylaxis #2 ea ondansetron 4 mg disintegrating 4 mg PO Q6H PRN nausea and 09/22/23 tablet vomiting #10 tabs Allergies Allergy/AdvReac Type Severity Reaction Status Date / Time ketorolac [From Toradol] Allergy Anaphylaxis Verified 09/21/23 19:29 Amoxicillin Allergy Unknown Uncoded 03/24/17 15:07 Clavulanic Acid Allergy Unknown Uncoded 03/24/17 15:07 Penicillin Allergy Unknown Uncoded 03/24/17 15:07 [facility] Disclaimer: The information contained in this section may have been updated after the patient was seen, as this information can be updated by other users. Medical History (Updated 09/22/23 @ 20:44 by LYNDA Mesa) Chronic pain Gall bladder disease Anxiety Surgical History H/O: hysterectomy Hx of cholecystectomy History of dental surgery H/O breast augmentation Hx of tonsillectomy Social History Smoking Status: Never smoker alcohol intake: never substance use type: denies use current occupational status: other Travel in the last 8 weeks: None household members: other housing: house ROS Obtained: Yes Systems reviewed as appropriate & no additional complaints except as documented Physical Exam General General appearance: alert and in no apparent distress Respiratory Respiratory exam: Present normal lung sounds bilaterally Cardiovascular Cardiovascular exam: Present regular rate and normal rhythm Abdominal Exam Abdominal exam: Present soft and normal bowel sounds; Absent tenderness, guarding or rebound Extremities Exam Extremities exam: Present normal inspection and full ROM; Absent tenderness Back Exam Back exam: Present normal inspection and full ROM Neurological Exam Neurological exam: Present alert, oriented X3 and CN II-XII intact Psychiatric Psychiatric exam: Present normal affect and normal mood Skin Skin exam: Present warm, dry and normal color; Absent rash (Patient reports a rash that you can feel however I do not appreciate any rash of any kind on her right inner thigh) Medical Decision Making Medical Records Medical records reviewed: Yes I reviewed the patient's medical records. Rajiv Inquiry Pt receiving controlled substance: No Vital Signs: 09/22/23 19:40 Temperature 98.3 F Temperature Source Oral Pulse Rate [Left Radial] 89 Respiratory Rate 18 Blood Pressure [Right Arm] 150/97 H Blood Pressure Mean [Right Arm] 114 Blood Pressure Source [Right Arm] Automatic Cuff Blood Pressure Position [Right Arm] Sitting 02 Sat by Pulse Oximetry 95 Oxygen Delivery Method Room Air Lab Data Lab results reviewed: Yes I reviewed the patient's lab results. Orders (Tests/Meds): ED MEDICATIONS Discontinued Medications Generic Name Dose Route Start Last Admin Trade Name Rose PRN Reason Stop Dose Admin Acetaminophen 1,000 mg 09/22/23 19:51 09/22/23 20:00 Acetaminophen 1,000mg/100ml Vial IV 09/22/23 19:52 1,000 mg ONCE ONE Administration Diphenhydramine HCl 50 mg 09/22/23 19:51 09/22/23 20:12 Diphenhydramine 50mg/Ml Vial IV 09/22/23 19:52 50 mg ONCE ONE Administration Prochlorperazine Edisylate 10 mg 09/22/23 19:51 09/22/23 20:00 Prochlorperazine 10mg/2ml Vial IV 09/22/23 19:52 10 mg ONCE ONE Administration Medical Decision Narrative: In summary patient is a 53-year-old female who presents to the emergency department for evaluation of vomiting rash and high blood pressure. Patient is normotensive with a blood pressure 150/97 O2 sat of 95% on room air respiratory rate of 18 pulse of 89 upon arrival, with a temperature of 98.3. Physical exam is remarkable and nonfocal. Patient points to an area of her right inner thigh that has a rash however I do see no rash of any kind. Abdominal exam is benign with normal bowel sounds. Differential diagnosis includes gastroenteritis versus contact dermatitis versus malingering. Initial workup was considered however patient has no focal findings and is hemodynamically stable therefore more advanced workup is deferred. Initial interventions include Tylenol Compazine and Benadryl. Patient has passed a p.o. challenge after initial intervention. Given this patient is appropriate for discharge home with prescription sent for [place] Critical Care Critical Care Time Critical Care Time: No
[2023-09-22] MEDS: ACETAMINOPHEN 1,000MG/100ML VIAL 1000 MG IV (20:00)
[2023-09-22] MEDS: PROCHLORPERAZINE 10MG/2ML VIAL 10 MG IV (20:00)
[2023-09-22] MEDS: diphenhydrAMINE 50MG/ML VIAL 50 MG IV (20:12)
[2023-09-22 20:48] VITALS: BP 119/77; PULSE 80; RESP 19; TEMP 36.8; O2SAT 98
== END 2023-09-22 20:51 | disposition home or self-care (01) ==
PROVIDERS: Emergency Provider Student in an Organized Health Care Education/Training Program; PCP Family Medicine
DX: R11.10 Vomiting, unspecified (principal)
CPT/HCPCS: 96374; 96375; 99284; J0131